=== PATIENT | female | born 1965 | race Caucasian/White ===

== ENCOUNTER 2022-08-25 10:25 | Outpatient (CLI) | payer OTHER, SELFPAY ==
[2022-08-25 13:36] LABS: Albumin* 4.4 g/dL (3.3-5.0); Chloride* 106 mmol/L (96-114)
[2022-08-25 13:37] LABS: Potassium* 4.8 mmol/L (3.6-5.1); Sodium* 140 mmol/L (135-149)
[2022-08-25 13:39] LABS: Bilirubin Total* 0.7 mg/dL (0.1-1.5); Carbon Dioxide* 29 mmol/L (20-32); Cholesterol* 189 mg/dL (90-199); Creatinine* 0.7 mg/dL (0.5-1.5); Estimated Glomerular Filt Rate 101 ml/min
[2022-08-25 13:40] LABS: Alanine Aminotransferase* 16 U/L (4-35); Alkaline Phosphatase* 108 U/L (40-150); Aspartate Amino Transferase* 27 U/L (12-35); Blood Urea Nitrogen* 14 mg/dL (7-30); Calcium* 9.5 mg/dL (8.4-10.6); Glucose* 105 mg/dL (60-115); HDL Cholesterol* 53 mg/dL (>=50); LDL Cholesterol Calculated 104 mg/dL (<100); Triglycerides* 160 mg/dL (40-149)
[2022-08-25 13:50] LABS: Creatinine Urine 39.1 mg/dL
[2022-08-25 13:53] LABS: Microalbumin Creatinine Ratio 20 mg/g (0-30); Microalbumin Urine < 1 mg/dL
== END 2022-08-25 10:26 | disposition home or self-care (01) ==
PROVIDERS: PCP Family Medicine; Visit Provider Family Medicine
DX: E78.5 Hyperlipidemia, unspecified (principal); I10 Essential (primary) hypertension; J30.9 Allergic rhinitis, unspecified; N92.0 Excessive and frequent menstruation with regular cycle; E66.9 Obesity, unspecified; R53.83 Other fatigue
CPT/HCPCS: 80053; 80061; 82043; 82570; 84443

== ENCOUNTER 2022-10-06 17:18 | Emergency (ER) | payer OTHER, SELFPAY ==
[2022-10-06] VITALS (11 sets, daily range): BP systolic 139–149; BP diastolic 80–92; PULSE 70–78; RESP 16; TEMP 36.7; O2SAT 94–97
--- NOTE | 2022-10-06 18:41 | CRLHL7_ITS ---
For Patients: As a result of the Century Cures Act, medical imaging exams and procedure reports are released immediately into your electronic medical record. You may view this report before your referring provider. If you have questions, please contact your health care provider. INDICATION: Chest pain. TECHNIQUE: Chest 1 view. COMPARISON: September 10, 2017. FINDINGS: Cardiovascular and mediastinum: Cardiac silhouette is mildly enlarged. There is a rounded opacity identified along the right hilum likely contiguous with the mediastinum concerning for underlying mass. Per report, there was a right pericardial cyst identified on the CT chest from 2017. This finding may represent enlargement of that cyst. Lungs and pleural spaces: Lungs are clear. No evidence of pleural effusion. No pneumothorax identified. Bones and soft tissues: Unremarkable. IMPRESSION: Rounded opacity along the right heart border/right mediastinum likely within the right hilum concerning for right hilar mass or possibly enlargement of a previously identified right pericardial cyst. Recommend further evaluation with CT of the chest. Findings discussed with Dr. Rubio At 7:40 p.m. on 10/06/[address] Barillas. Dictated by Geronimo Barillas MD @ 10/06/2022 7:42:17 PM (Electronically Signed)
--- NOTE | 2022-10-06 18:42 | ED_ITS ---
HPI - General Adult General Chief complaint: Extremity Pain/Injury, Upper Stated complaint: neck pain, sent from , might be cardiac Time Seen by Provider: 10/06/22 18:25 History of Present Illness HPI narrative: Pt is a 56 year old woman with a history of asthma who had a brief episode of chest pain 6 hours ago. Pain was in the left superior chest without radiation. It was mild in intensity and not associated with fever, chills, cough or diaphoresis. Pt notes no worsening with activity. She has had no treatment prior to arrival. Pain went away on its own. Pt presented to urgent care in [place] but was directed to come to the ED. No history of blood clots or heart disease. Pt has otherwise been in her usual state of health. Related Data Home Medications Medication Instructions Recorded Confirmed montelukast 10 mg tablet 10 mg PO QDAY 08/25/22 08/25/22 Previous Rx's Medication Instructions Recorded fluticasone 250 mcg-salmeterol 50 1 inh inhalation BID #60 ea 08/03/22 mcg/dose blistr powdr for inhalation (Advair Diskus) amlodipine 5 mg tablet 5 mg PO QDAY #90 tabs 08/25/22 atorvastatin 20 mg tablet 20 mg PO QDAY #90 tabs 08/25/22 Allergies Allergy/AdvReac Type Severity Reaction Status Date / Time No Known Drug Allergies Allergy Verified 08/21/22 11:23 Review of Systems Status of ROS: Reports: 10 or more systems reviewed and unremarkable except as noted in History and below [facility] Medical History (Updated 10/06/22 @ 21:36 by Adalberto Rubio MD) Asthma Chest pain Chest pain 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 Surgical History History of endometrial ablation History of tubal ligation Family History Family/Other Stroke High cholesterol High blood pressure Osteoporosis Depression Social History 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 EYES: No scleral icterus. ENT: Tympanic membranes and oropharynx normal. THYROID: no thyroid nodules or thyromegaly. LYMPH: No supraclavicular or cervical lymphadenopathy. SKIN: Visible skin seen during exam normal or with benign process only. EXT: No dependent lower extremity pedal edema. HEART: Regular rate and rhythm with no murmurs, rubs, or gallops. LUNGS: Clear to auscultation bilaterally with no crackles or wheezes. ABD: Soft, non tender, non distended. PSYCH: Good eye contact, speech is not pressured. Const: Vital Signs, click to edit/add: Vital Signs - 24 hr 10/06/22 17:57 10/06/22 19:59 10/06/22 20:29 Temperature 98.1 F Pulse Rate Pulse Rate [Pulse Oximeter] 78 73 Respiratory Rate 16 Blood Pressure Blood Pressure [Ri ght Upper Arm] 142/84 H 148/89 H Pulse Oximetry 96 95 96 Oxygen Delivery Me thod Room Air Room Air 10/06/22 20:49 10/06/22 20:50 10/06/22 21:00 Temperature Pulse Rate 78 76 73 Pulse Rate [Pulse Oximeter] Respiratory Rate Blood Pressure 141/80 H Blood Pressure [Ri ght Upper Arm] Pulse Oximetry 96 97 95 Oxygen Delivery Me thod 10/06/22 21:02 Temperature Pulse Rate 72 Pulse Rate [Pulse Oximeter] Respiratory Rate Blood Pressure 139/92 H Blood Pressure [Ri ght Upper Arm] Pulse Oximetry 96 Oxygen Delivery Me thod Course Course Hospital Course: EKG, Troponin, D dimer, CBC, BMP Chest x ray ordered Reevaluation(s) Reevaluation #1: Troponin and EKG negative. D dimer elevated but no PE on CT of the chest. Time: 21:33 Vital Signs Vital signs: Initial Vital Signs Temperature 98.1 F 10/06/22 17:57 Temperature Source Temporal Artery Scan 10/06/22 17:57 Pulse Rate 78 10/06/22 17:57 Pulse Rhythm 10/06/22 17:57 Respiratory Rate 16 10/06/22 17:57 Blood Pressure 142/84 H 10/06/22 17:57 Blood Pressure Mean 103 10/06/22 17:57 Blood Pressure Position Sitting 10/06/22 17:57 Pulse Oximetry 96 10/06/22 17:57 Oxygen Delivery Method 10/06/22 17:57 Vital Signs Temperature 98.1 F 10/06/22 17:57 Pulse Rate 78 10/06/22 17:57 Respiratory Rate 16 10/06/22 17:57 Blood Pressure 142/84 H 10/06/22 17:57 Pulse Oximetry 96 10/06/22 17:57 Oxygen Delivery Method 10/06/22 17:57 Temperature 98.1 F 10/06/22 17:57 Pulse Rate 72 10/06/22 21:02 Respiratory Rate 16 10/06/22 17:57 Blood Pressure 139/92 H 10/06/22 21:02 Pulse Oximetry 96 10/06/22 21:02 Oxygen Delivery Method 10/06/22 19:59 Medical Decision Making MDM Narrative Medical decision making narrative: Pt presents with left sided chest pain. Pt's EKG negative. D dimer elevated but PE study negative. Chronic cyst noted and reviewed with pt. Pt's work up otherwise unremarkable. Outpt follow up recommended. Differential Diagnosis Differential Diagnosis: OR, Angino, Aortic Disesction, Pneumonia, Pneumothorax, Muscle Pain Lab Data Labs: Lab Results 10/06/22 10/06/22 10/06/22 Range/Units 19:02 19:02 19:02 WBC 10.82 (4.50-11.00) K/uL RBC 4.83 (4.00-5.20) m/uL Hgb 13.9 (12.0-16.0) gm/dL Hct 42.5 (33.0-51.0) % MCV 88 (80-100) fL MCH 29 (26-34) pg MCHC 33 (32-36) gm/dL RDW Coeff of Jin 13.5 (11.5-15.5) % Plt Count 393 (140-440) K/uL Neut % (Auto) 72.0 (42.0-72.0) % Lymph % (Auto) 24.2 (20-44) % [place] % (Auto) 3.3 (0.0-11.0) % Eos % (Auto) 0.2 (0.0-7.0) % Baso % (Auto) 0.2 (0.0-3.0) % Neut # (Auto) 7.79 H (1.7-7.0) K/uL Lymph # (Auto) 2.62 (0.90-2.90) K/uL [place] # (Auto) 0.40 (0.00-0.90) K/UL Eos # (Auto) 0.02 (0.00-0.50) K/uL Baso # (Auto) 0.02 (0.00-0.30) K/uL Abs Immat Gran (auto) 0.01 (0.00-0.30) K/uL Imm/Tot Granulo (auto) 0.1 % D-Dimer Quant (PE/DVT) 2.98 H (0.00-0.50) ug/ml Sodium 142 (135-149) mmol/L Potassium 4.1 (3.6-5.1) mmol/L Chloride 109 (96-114) mmol/L Carbon Dioxide 25 (20-32) mmol/L BUN 16 (7-30) mg/dL Creatinine 0.7 (0.5-1.5) mg/dL Estimated GFR 101 ml/min Glucose 99 (60-115) mg/dL Calcium 9.1 (8.4-10.6) mg/dL Troponin I < 0.01 L (0.01-0.04) ng/mL Discharge Plan Discharge Clinical Impression: Chest pain Condition: Stable Instructions: Chest Pain (ED) Activity Level: No Restrictions Discharge Diet: Regular Prescriptions: No Action montelukast 10 mg tablet 10 mg PO QDAY Label Comments: TAKE 1 TABLET BY MOUTH AT BEDTIME amlodipine 5 mg tablet 5 mg PO QDAY Qty: 90 3RF atorvastatin 20 mg tablet 20 mg PO QDAY Qty: 90 3RF fluticasone propion-salmeterol [Advair Diskus] 250-50 mcg/dose blister with device 1 inh inhalation BID Qty: 60 0RF Follow Up/Referrals: Brant Mcleod MD [Referring] - Stand Alone Forms: MyHealth Info Instructions
[2022-10-06 19:26] LABS: Basophils Absolute Auto 0.02 K/uL (0.00-0.30); Basophils Percent Auto 0.2 % (0.0-3.0); Eosinophils Absolute Auto 0.02 K/uL (0.00-0.50); Eosinophils Percent Auto 0.2 % (0.0-7.0); Hematocrit 42.5 % (33.0-51.0); Hemoglobin* 13.9 gm/dL (12.0-16.0); Immature Granulocytes Abs Auto 0.01 K/uL (0.00-0.30); Immature Granulocytes Pct Auto 0.1 %; Lymphocytes Absolute Auto 2.62 K/uL (0.90-2.90); Lymphocytes Percent Auto 24.2 % (20-44); Mean Corpuscular HGB Conc 33 gm/dL (32-36); Mean Corpuscular Hemoglobin 29 pg (26-34); Mean Corpuscular Volume 88 fL (80-100); Monocytes Percent Auto 3.3 % (0.0-11.0); Neutrophils Absolute Auto 7.79 K/uL (1.7-7.0); Platelet Count* 393 K/uL (140-440); RDW Coefficient of Variation % 13.5 % (11.5-15.5); Red Blood Count 4.83 m/uL (4.00-5.20); White Blood Count* 10.82 K/uL (4.50-11.00)
[2022-10-06 19:31] LABS: Slide Review Reflex No
[2022-10-06 19:50] LABS: Chloride* 109 mmol/L (96-114); Potassium* 4.1 mmol/L (3.6-5.1); Sodium* 142 mmol/L (135-149)
[2022-10-06 19:53] LABS: Blood Urea Nitrogen* 16 mg/dL (7-30); Carbon Dioxide* 25 mmol/L (20-32); Creatinine* 0.7 mg/dL (0.5-1.5); Estimated Glomerular Filt Rate 101 ml/min
[2022-10-06 19:54] LABS: Calcium* 9.1 mg/dL (8.4-10.6); D Dimer Quantitative* 2.98 ug/ml (0.00-0.50); Glucose* 99 mg/dL (60-115)
[2022-10-06 20:07] LABS: Troponin I* < 0.01 ng/mL (0.01-0.04)
--- NOTE | 2022-10-06 20:09 | CRLHL7_ITS ---
For Patients: As a result of the Century Cures Act, medical imaging exams and procedure reports are released immediately into your electronic medical record. You may view this report before your referring provider. If you have questions, please contact your health care provider. INDICATION: Chest pain. TECHNIQUE: CT chest PE was acquired with 95 cc Isovue 370 IV contrast. COMPARISON: September 10, 2017. FINDINGS: Heart and vasculature: Contrast opacification of the pulmonary arterial tree is adequate. No sign of pulmonary embolism. Heart size is normal. Thoracic aorta and pulmonary artery are normal in caliber.Pericardial cyst is identified measuring 5.7 x 3.0 x 4.7 centimeters, slightly increased in size compared to prior exam from 2017 where it measured 5.1 x 2.7 by 4.0 centimeters. Lungs and pleura: Mild bibasilar atelectasis. No suspicious nodules or airspace opacities. No pleural effusions, pleural thickening, or pneumothorax. Lymph nodes/mediastinum: No mediastinal, hilar, or axillary adenopathy. Chest wall: No masses. Upper abdomen: No acute or significant findings. Small hiatal hernia. Bones: Unremarkable for age. IMPRESSION: Opacity identified on the chest radiograph is consistent with the pericardial cyst which has slightly grown in size since 2017. Otherwise, no acute cardiopulmonary process identified. No pulmonary embolism. Please note that all CT scans at this facility use dose modulation, iterative reconstruction, and/or weight-based dosing when appropriate to reduce radiation dose to as low as reasonably achievable. Dictated by Geronimo Barillas MD @ 10/06/2022 9:16:16 PM (Electronically Signed)
== END 2022-10-06 21:54 | disposition home or self-care (01) ==
PROVIDERS: Emergency Provider Internal Medicine; PCP Family Medicine
DX: R07.9 Chest pain, unspecified (principal)
CPT/HCPCS: 36415; 71045; 71260; 80048; 84484; 85025; 85379; 93005; 94761; 99283; 99284; Q9967

== ENCOUNTER 2023-01-05 14:26 | Outpatient (CLI) | payer OTHER, SELFPAY ==
--- NOTE | 2023-01-05 14:40 | CRLHL7_ITS ---
For Patients: As a result of the Century Cures Act, medical imaging exams and procedure reports are released immediately into your electronic medical record. You may view this report before your referring provider. If you have questions, please contact your health care provider. BILATERAL SCREENING MAMMOGRAM WITH COMPUTER-AIDED DETECTION AND TOMOSYNTHESIS TECHNIQUE: CC and MLO views were obtained. These mammographic images have been obtained using full-field digital technique. These mammographic images were interpreted with the benefit of computer-aided detection. Breast tomosynthesis was used in this interpretation. COMPARISON FILM: 11/01/20, 09/14/19. FINDINGS: There are scattered areas of fibroglandular density. IMPRESSION: There is no radiographic evidence for malignancy. ASSESSMENT: BI-RADS Category 1: Negative RECOMMENDATION: Routine screening mammogram in 1 year. A lay language report of this examination will be provided to the patient. WILMER SALMON M.D. Diagnostic Radiologist [email or web address] Transcribed: 01/06/2023, 2:[address]/Dictated by: Wilmer Salmon MD @ 01/06/2023 8:59:00 AM (Electronically Signed)
== END 2023-01-05 14:27 | disposition home or self-care (01) ==
LOC: MAMMO 14:27
PROVIDERS: PCP Family Medicine; Visit Provider Family Medicine
DX: Z12.31 Encounter for screening mammogram for malignant neoplasm of breast (principal)
CPT/HCPCS: 77063; 77067

== ENCOUNTER 2023-06-23 09:27 | Outpatient (CLI) | payer OTHER, SELFPAY ==
--- NOTE | 2023-06-23 09:45 | CRLHL7_ITS ---
For Patients: As a result of the Century Cures Act, medical imaging exams and procedure reports are released immediately into your electronic medical record. You may view this report before your referring provider. If you have questions, please contact your health care provider. CLINICAL HISTORY: RIGHT breast pain. COMPARISON: 01/05/2023, 11/01/2020, 09/14/2019 TECHNIQUE: Digital RIGHT mammogram in 2 projections. Real-time ultrasound imaging of RIGHT breast with imaging documentation. BREAST COMPOSITION: Scattered fibroglandular densities. FINDINGS: 3D cc/MLO right breast mammogram images submitted. No suspicious masses or architectural distortion. No adenopathy or suspicious calcifications. Targeted right breast ultrasound performed in the upper outer quadrant at 10 o`clock 6 cm from the nipple corresponding to the area of tenderness. No fibrocystic change or mass. IMPRESSION: No evidence of malignancy. RECOMMENDATIONS: Annual bilateral screening mammography. BI-RADS: 2. Benign. Results and recommendations discussed with the patient. Dictated by Wilmer Lee MD @ 06/23/2023 12:18:32 PM (Electronically Signed)
--- NOTE | 2023-06-23 10:15 | CRLHL7_ITS ---
For Patients: As a result of the Century Cures Act, medical imaging exams and procedure reports are released immediately into your electronic medical record. You may view this report before your referring provider. If you have questions, please contact your health care provider. PLEASE SEE RIGHT DIAGNOSTIC MAMMOGRAM OF SAME DAY. CRL:emily PT/Dictated by: Wilmer Lee MD @ 06/23/2023 1:38:00 PM (Electronically Signed)
== END 2023-06-23 09:28 | disposition home or self-care (01) ==
LOC: MAMMO 09:28
PROVIDERS: PCP Family Medicine; Visit Provider Family Medicine
DX: N64.4 Mastodynia (principal)
CPT/HCPCS: 76642; 77065; G0279

== ENCOUNTER 2024-07-11 10:58 | Outpatient (CLI) | payer OTHER, SELFPAY ==
--- NOTE | 2024-07-11 11:30 | CRLHL7_ITS ---
For Patients: As a result of the Century Cures Act, medical imaging exams and procedure reports are released immediately into your electronic medical record. You may view this report before your referring provider. If you have questions, please contact your health care provider. BILATERAL SCREENING MAMMOGRAM WITH COMPUTER-AIDED DETECTION AND TOMOSYNTHESIS TECHNIQUE: CC and MLO views were obtained. These mammographic images have been obtained using full-field digital technique. These mammographic images were interpreted with the benefit of computer-aided detection. Breast Tomosynthesis was used in this interpretation. COMPARISON FILM: 01/05/23, 11/01/20, 09/14/19. FINDINGS: There are scattered areas of fibroglandular density. IMPRESSION: There is no radiographic evidence for malignancy. ASSESSMENT: BI-RADS Category 1: Negative RECOMMENDATION: Routine screening mammogram in 1 year. A lay language report of this examination will be provided to the patient. Wilmer Lee M.D. Diagnostic Radiologist [email or web address] SP/Dictated by: Wilmer Lee MD @ 07/11/2024 12:06:00 PM (Electronically Signed)
== END 2024-07-11 10:59 | disposition home or self-care (01) ==
DX: Z12.31 Encounter for screening mammogram for malignant neoplasm of breast (principal)
CPT/HCPCS: 77063; 77067